=== PATIENT | female | born 1970 | race Caucasian/White ===

== ENCOUNTER 2017-06-30 00:42 | Emergency (ER) | payer MEDICAID ==
[2017-06-30 01:00] VITALS: RESP 20; O2SAT 99
[2017-06-30 01:17] LABS: RBC URINE < 1 /hpf (0-3); URINE BACTERIA RARE (<OCC); URINE BILIRUBIN NEGATIVE (NEGATIVE); URINE COLOR Amber (YELLOW); URINE GLUCOSE (UA) NORMAL (Normal); URINE KETONE NEGATIVE (NEGATIVE); URINE LEUKOCYTE ESTERASE 3+ Leu/uL (Negative); URINE PROTEIN NEGATIVE (NEGATIVE); URINE UROBILINOGEN NORMAL mg/dL (0.2-1.0); WBC URINE 63 /hpf (0-5)
[2017-06-30 01:23] LABS: URINE BLOOD TRACE (NEGATIVE)
--- NOTE | 2017-06-30 01:54 | C.PDOC ---
History Of Present Illness 46 y/o female presents to ED with complaints of urinary frequency and dysuria for 4 days. aLso notes lower back pain for 30 min. Patient denies vaginal discharge, vaginal bleeding, fever, chills, nausea, vomiting or any other complaints at this time. H/o similar symptoms 1+ years ago with dx of uti. Time Seen by Provider: 06/30/17 00:53 Chief Complaint (Nursing): Female Genitourinary History Per: Patient History/Exam Limitations: no limitations Onset/Duration Of Symptoms: Days Current Symptoms Are (Timing): Still Present Past Medical History Reviewed: Historical Data, Nursing Documentation, Vital Signs Vital Signs: Last Vital Signs Temp 98.1 F 06/30/17 02:19 Pulse 82 06/30/17 02:19 Resp 20 06/30/17 02:19 BP 130/80 06/30/17 02:19 Pulse Ox 99 06/30/17 02:01 - Medical History PMH: Depression, Gastritis Surgical History: Cholecystectomy (2011) Family History: States: No Known Family Hx - Social History Hx Tobacco Use: No Hx Alcohol Use: No Hx Substance Use: No - Immunization History Hx Tetanus Toxoid Vaccination: No Hx Influenza Vaccination: No Hx Pneumococcal Vaccination: No Review Of Systems Except As Marked, All Systems Reviewed And Found Negative. Constitutional: Negative for: Fever, Chills Gastrointestinal: Negative for: Nausea, Vomiting Genitourinary: Positive for: Dysuria, Frequency. Negative for: Hematuria, Vaginal Discharge, Vaginal Bleeding Musculoskeletal: Positive for: Back Pain Skin: Negative for: Rash Neurological: Negative for: Weakness, Numbness Physical Exam - Physical Exam Appears: Well, Non-toxic, No Acute Distress Skin: Normal Color, Warm, Dry, No Rash Head: Atraumatic, Normacephalic Eye(s): bilateral: Normal Inspection, EOMI Nose: Normal Oral Mucosa: Moist Neck: Normal ROM, Supple Chest: Symmetrical Cardiovascular: Rhythm Regular, No Murmur Respiratory: Normal Breath Sounds, No Accessory Muscle Use, No Rales, No Rhonchi , No Wheezing Gastrointestinal/Abdominal: Soft, Tenderness (to suprapubic area), No Guarding, No Rebound Back: No CVA Tenderness, No Vertebral Tenderness, Paraspinal Tenderness (lower lumbar tenderness) Extremity: Normal ROM, Capillary Refill (<2 seconds) Neurological/Psych: Oriented x3, Normal Speech, Normal Cognition ED Course And Treatment O2 Sat by Pulse Oximetry: 99 (RA) Pulse Ox Interpretation: Normal Progress Note: Motrin and Marcrobid ordered. Pt remains afebrile, tolerating PO. DIscussed signs of concern and instructed to return to ER if symtpoms persist or worsen. Disposition - Disposition Disposition: HOME/ ROUTINE Disposition Time: 01:53 Condition: STABLE Additional Instructions: Vaya a herrera mdico o la clnica en 2-5 edwards sin falta, para mas evaluacin. Tenkiller los medicamentos margret indicado. Volver a la coby de emergencia en cualquier momento si los sntomas persisten o empeoran. Prescriptions: Nitrofurantoin Macrocrystals [Macrobid] 1 cap PO BID #14 cap Instructions: Urinary Tract Infection in Women (ED) Forms: [employer] (Slovak) Print Language: FAROESE - Clinical Impression Clinical Impression: UTI (urinary tract infection) - PA / SYSTEM SAFETY ENGINEER / Resident Statement MD/DO has reviewed & agrees with the documentation as recorded. - Scribe Statement The provider has reviewed the documentation as recorded by the Aryibpascual Pickard All medical record entries made by the Eulalia were at my direction and personally dictated by me. I have reviewed the chart and agree that the record accurately reflects my personal performance of the history, physical exam, medical decision making, and the department course for this patient. I have also personally directed, reviewed, and agree with the discharge instructions and disposition.
[2017-06-30 02:20] VITALS: BP 130/80; PULSE 82; TEMP 98.1
== END 2017-06-30 02:20 | disposition home or self-care (01) ==
LOC: C.ER 00:42
DX: N39.0 Urinary tract infection, site not specified (principal)

== ENCOUNTER 2018-11-11 11:46 | Outpatient (CLI) | payer MEDICAID | END 2018-11-11 11:47 | disposition home or self-care (01) | LOC: C.MAMMO 11:47 ==